=== PATIENT | male | born 1990 | race American Indian/Alaskan Native ===

== ENCOUNTER 2017-11-11 01:10 | Inpatient (IN) | payer SELFPAY ==
[~2017-11-11 01:10] MED LIST: ATIVAN IV ONE
--- NOTE | 2017-11-11 02:01 | Emergency Department Report ---
ED Seizure HPI - General Chief Complaint: Seizure Stated Complaint: SEIZURE Time Seen by Provider: 11/11/17 01:10 Source: EMS Mode of arrival: Stretcher Limitations: Altered Mental Status - History of Present Illness Initial Comments: Patient is a 27-year-old male that presents to the emergency room via EMS with seizure like activity. Seizure activity witnessed by family and EMS. Patient given Ativan by EMS. During the postictal stage, patient became very combative and agitated and confused. Patient has a past medical history of seizures, HIV, diabetes. Patient is noncompliant with medications. Histories given by EMS and mother MD Complaint: seizure, loss of consciousness -: Sudden Description of Episode: loss of consciousness, tonic-clonic movement, post- event confusion Witnessed:: Yes Trauma: No Seizure History: known seizure disorder, history of non-compliance Place: home Possible Precipitating Event: none Associated Symptoms: confusion Treatments Prior to Arrival: benzodiazepines - Related Data Home Medications Medication Instructions Recorded Confirmed Last Taken Antiretroviral Regimen Meds Unknown 10/09/15 10/09/15 Unknown Ritonavir [Norvir] 800 mg PO DAILY 10/09/15 10/09/15 10/07/15 Previous Rx's Medication Instructions Recorded Last Taken Type Cyclobenzaprine [Flexeril] 10 mg PO TID PRN #15 tablet 10/09/15 Unknown Rx traMADol [Ultram 50 MG tab] 50 mg PO Q4HR PRN #20 tablet 10/09/15 Unknown Rx Allergies Allergy/AdvReac Type Severity Reaction Status Date / Time peanut Allergy Unknown Verified 11/11/17 01:31 sea food Allergy Rash Uncoded 11/11/17 01:31 ED Review of Systems ROS: Stated complaint: SEIZURE Other details as noted in HPI Comment: Unobtainable due to pts medical conditions ED Past Medical Hx - Past Medical History Previous Medical History?: Yes Hx Diabetes: Yes Hx Seizures: Yes Hx HIV: Yes - Surgical History Past Surgical History?: No - Family History Family history: hypertension - Social History Smoking Status: Current Every Day Smoker Substance Use Type: None - Medications Home Medications: Home Medications Medication Instructions Recorded Confirmed Last Taken Type Antiretroviral Regimen Meds Unknown 10/09/15 10/09/15 Unknown History Cyclobenzaprine [Flexeril] 10 mg PO TID PRN #15 tablet 10/09/15 Unknown Rx Ritonavir [Norvir] 800 mg PO DAILY 10/09/15 10/09/15 10/07/15 History traMADol [Ultram 50 MG tab] 50 mg PO Q4HR PRN #20 tablet 10/09/15 Unknown Rx ED Physical Exam - General Limitations: Altered Mental Status General appearance: lethargic - Head Head exam: Present: atraumatic, normocephalic - Eye Eye exam: Present: normal appearance, PERRL Pupils: Present: normal accommodation - ENT ENT exam: Present: normal exam, mucous membranes moist - Neck Neck exam: Present: normal inspection - Respiratory Respiratory exam: Present: normal lung sounds bilaterally - Cardiovascular Cardiovascular Exam: Present: regular rate, normal rhythm. Absent: systolic murmur, diastolic murmur, rubs, gallop - GI/Abdominal GI/Abdominal exam: Present: soft, normal bowel sounds - Rectal Rectal exam: Present: deferred - Extremities Exam Extremities exam: Present: normal inspection - Back Exam Back exam: Present: normal inspection - Neurological Exam Neurological exam: Present: altered - Psychiatric Psychiatric exam: Present: other (patient very agitated and combative) - Skin Skin exam: Present: warm, dry, intact, normal color. Absent: rash ED Course Vital Signs 11/11/17 11/11/17 01:10 02:10 Temperature 98.8 F Pulse Rate 92 H Respiratory 38 H 30 H Rate Blood Pressure 120/79 O2 Sat by Pulse 99 100 Oximetry - Reevaluation(s) Reevaluation #1: 11/11/17 02:10. Patient resting. No seizure activity Reevaluation #2: 11/11/17 04:55 patient in nature shift will start fluids and insulin drip ED Medical Decision Making - Lab Data Result diagrams: 11/11/17 03:18 11/11/17 03:18 - EKG Data -: EKG Interpreted by Ok EKG shows normal: sinus rhythm Rate: normal - EKG Data Interpretation: no acute changes - Radiology Data Radiology results: report reviewed - Medical Decision Making Patient is a 23-year-old noncompliant patient was sent to the emergency room with uncontrolled seizure activity and agitation. Patient found to be in HONK, will treat appropriately. Will consult hospitalist for admission - Differential Diagnosis dka, noncompliance, hhs. dehydration. Critical Care Time: Yes Critical care attestation.: If time is entered above; I have spent that time in minutes in the direct care of this critically ill patient, excluding procedure time. Critical Care Time: 45 minutes spent with patient for critical care time ED Disposition Clinical Impression: Seizure, Altered mental status, Hyperglycemia, Combative behavior, Acute renal insufficiency, Hyperglycemic hyperosmolar nonketotic coma Disposition: DC09 OP ADMIT IP TO THIS HOSP Is pt being admited?: Yes Does the pt Need Aspirin: No Condition: Critical Time of Disposition: 05:07
[2017-11-11 02:19] LABS: Bilirubin,Urine NEG (Negative); Blood,Urine NEG (Negative); Color,Urine Red (Yellow); Nitrite,Urine NEG (Negative); Urobilinogen,Urine < 2.0 mg/dL (<2.0); WBC,Urine < 1.0 /HPF (0.0-6.0)
[2017-11-11 02:20] LABS: RBC,Urine < 1.0 /HPF (0.0-6.0)
--- NOTE | 2017-11-11 03:07 | Cat Scan Report ---
FINAL REPORT PROCEDURE: CT HEAD/BRAIN WO CON TECHNIQUE: Computerized tomography of the head was performed without contrast material. 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 Paranasal sinuses: Normal. Ventricles and subarachnoid spaces: Normal. Cerebrum: No evidence of hemorrhage, acute infarction or mass. There are calcifications in the right frontal lobe which could be related to previous shunt placement. Cerebellum and brainstem: No evidence of hemorrhage, acute infarction or mass. Vasculature: Normal. Comments: None. IMPRESSION: There is no hemorrhage, edema, mass, mass effect or midline shift. 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 There are calcifications in the right frontal lobe which could be related to previous shunt placement.
[2017-11-11 03:10] LABS: Amphetamine Screen,Urine PRESUMPTIVE NEGATIVE; Benzodiazepines Screen,Urine PRESUMPTIVE NEGATIVE; Cannabinoid Screen,Urine PRESUMPTIVE NEGATIVE; Cocaine Screen,Urine PRESUMPTIVE NEGATIVE; Methadone Screen,Urine PRESUMPTIVE NEGATIVE; Opiate Screen,Urine PRESUMPTIVE NEGATIVE
[2017-11-11 03:39] LABS: Hematocrit 34.3 % (35.5-45.6); Hemoglobin 11.2 gm/dl (11.8-15.2); Mean Corpuscular HGB Conc 33 % (32-34); Mean Corpuscular Volume 79 fl (84-94); Platelet Count 299 K/mm3 (140-440); Red Blood Count 4.36 M/mm3 (3.65-5.03); Red Cell Distribution Width 14.7 % (13.2-15.2)
[2017-11-11 03:43] LABS: Mean Corpuscular Hemoglobin 26 pg (28-32)
[2017-11-11 04:43] LABS: Band Neutrophils # (Manual) 1.1 K/mm3; Basophils % (Manual) 0 % (0.0-1.8); Total Cells Counted 100
[2017-11-11 04:45] LABS: Anisocytosis 1+; Platelet Estimate Consistent w Auto
[2017-11-11] MEDS ORDERED: NACL 0.9% 1000 ML 1,000 ML IV ONE ×3 (04:57→08:48)
[2017-11-11] MEDS ORDERED: D50W (25GM) Syringe IV PRN ×3 (04:57→13:19)
[2017-11-11] MEDS ORDERED: NovoLIN R 100 UNITS in NACL 0.9% 99 ML IV SCH ×2 (05:00→09:00)
[2017-11-11] MEDS ORDERED: TYLENOL PO PRN (05:46)
[2017-11-11] MEDS ORDERED: MILK OF MAGNESIA PO PRN (05:46)
[2017-11-11] MEDS ORDERED: DULCOLAX PR PRN (05:46)
[2017-11-11] MEDS ORDERED: ZOFRAN IV PRN (05:46)
--- NOTE | 2017-11-11 05:46 | History and Physical Report ---
History of Present Illness Date of examination: 11/11/17 History of present illness: 27-year-old man history of HIV, diabetes, seizure was brought to the emergency room because he had a seizure today. Patient is noncompliant with medication. He stated that he was recently admitted at [facility] 2 months ago for a brain infection, he cannot give further details Review Of Systems: Constitutional: no weight loss Ears, eyes, nose, mouth and throat: no nasal congestion, no nasal discharge, no sinus pressure, blurry vision, diplopia Neck: No neck pain or rigidity. Cardiovascular: No chest pain, palpitations Respiratory: No shortness of breath, cough Gastrointestinal: No abdominal pain, hematochezia Genitourinary : no dysuria, frequency , hematuria Musculoskeletal: no muscle ache Integumentary: no rash, no pruritis Neurological: no parathesias, focal weakness Endocrine: no cold or heat intolerance, no polyuria or polydipsia Hematologic/Lymphatic: no easy bruising, no easy bleeding, no gland swelling Allergic/Immunologic: no urticaria, no angioedema. PAST MEDICAL HISTORY:HIV, diabetes, seizure PAST SURGICAL HISTORY:none FAMILY HISTORY:diabetes SOCIAL HISTORY: Denies all alcohol, tobacco, drugs Medications and Allergies Allergies Allergy/AdvReac Type Severity Reaction Status Date / Time peanut Allergy Unknown Verified 11/11/17 01:31 sea food Allergy Rash Uncoded 11/11/17 01:31 Home Medications Medication Instructions Recorded Confirmed Last Taken Type Abacavir Sulfate/Lamivudine 1 each PO QDAY 11/11/17 11/11/17 Unknown History [Abacavir-Lamivudine 600-300 mg] Calcium Carbonate/Vitamin D3 1 each PO QDAY 11/11/17 11/11/17 Unknown History [Calcium 500-Vit D3 200 Tablet] Ciprofloxacin HCl [Ciprofloxacin 500 mg PO BID 11/11/17 11/11/17 Unknown History TAB] Darunavir Ethanolate [Prezista] 800 mg PO QDAY 11/11/17 11/11/17 Unknown History Docusate Sodium [Colace] 100 mg PO QDAY 11/11/17 11/11/17 Unknown History Insulin Detemir [Levemir] 10 units SUB-Q QHS 11/11/17 11/11/17 Unknown History Omeprazole 20 mg PO QDAY 11/11/17 11/11/17 Unknown History Ranitidine HCl [Acid Seo Engineer] 150 mg PO QDAY 11/11/17 11/11/17 Unknown History Ritonavir [Norvir] 100 mg PO QDAY 11/11/17 11/11/17 Unknown History Sennosides 8.6 mg PO QHS PRN 11/11/17 11/11/17 Unknown History metroNIDAZOLE [Metronidazole] 500 mg PO QDAY 11/11/17 11/11/17 Unknown History Active Meds: Active Medications Dextrose (D50w (25gm) Syringe) 0 ml IV ONCE PRN PRN Reason: Hypoglycemia Sodium Chloride (Nacl 0.9% 1000 Ml) 1,000 mls @ 999 mls/hr IV BOLUS ONE Stop: 11/11/17 05:57 Insulin Human Regular 100 (units/ Sodium Chloride) 100 mls @ 1 mls/hr IV TITR JOSÉ ANTONIO; 1 UNITS/HR PRN Reason: Protocol Sodium Chloride (Nacl 0.9% 1000 Ml) 1,000 mls @ 999 mls/hr IV BOLUS ONE Stop: 11/11/17 06:07 Exam - Physical Exam Narrative exam: Gen. appearance: Patient lying in bed in no acute distress HEENT: Normocephalic/atraumatic, pupils equal round reactive to light, extra occular movement intact, no scleral icterus, no JVD or thyromegaly or nodule, neck is supple, mucous membrane moist, no erythema or exudate Heart: S1-S2, regular rate and rhythm Lungs: Clear to auscultation bilateral breathing comfortable Abdomen: Positive bowel sounds, nontender, nondistended, no organomegaly Extremities: No edema, cyanosis, clubbing Neuro:: Oriented 3 , cranial nerves II-12 intact, speech, motor intact Skin: No rash, nodules, warm dry - Constitutional Vitals: Temp Pulse Resp BP Pulse Ox 98.8 F 92 H 30 H 120/79 100 11/11/17 01:10 11/11/17 01:10 11/11/17 02:10 11/11/17 01:10 11/11/17 02:10 Results - Labs CBC & Chem 7: 11/11/17 03:18 11/11/17 05:25 Labs: Abnormal lab results 11/11/17 11/11/17 11/11/17 Range/Units 02:34 03:18 03:18 Hgb 11.2 L (11.8-15.2) gm/dl Hct 34.3 L (35.5-45.6) % MCV 79 L (84-94) fl MCH 26 L (28-32) pg Seg Neuts % (Manual) 72.0 H (40.0-70.0) % Lymphocytes % (Manual) 4.0 L (13.4-35.0) % Lymphocytes # (Manual) 0.2 L (1.2-5.4) K/mm3 Sodium 120 L (137-145) mmol/L Potassium 5.5 H (3.6-5.0) mmol/L Chloride 80.2 L (98-107) mmol/L BUN 35 H (9-20) mg/dL Creatinine 2.1 H (0.8-1.5) mg/dL Glucose 1038 H* (75-100) mg/dL POC Glucose > 500 H (70-105) Salicylates (2.8-20.0) mg/dL 11/11/17 Range/Units 03:18 Hgb (11.8-15.2) gm/dl Hct (35.5-45.6) % MCV (84-94) fl MCH (28-32) pg Seg Neuts % (Manual) (40.0-70.0) % Lymphocytes % (Manual) (13.4-35.0) % Lymphocytes # (Manual) (1.2-5.4) K/mm3 Sodium (137-145) mmol/L Potassium (3.6-5.0) mmol/L Chloride (98-107) mmol/L BUN (9-20) mg/dL Creatinine (0.8-1.5) mg/dL Glucose (75-100) mg/dL POC Glucose (70-105) Salicylates < 0.3 L (2.8-20.0) mg/dL - Imaging and Cardiology CT Scan - head: report reviewed Assessment and Plan Assessment HONK Seizure acute on chronic, probably related to diabetes versus noncompliant with his medication for brain infection HIV Noncompliance Plan Admit to medicine Start insulin drip, IV fluids, monitor electrolytes Consult critical care DVT prophylaxis
[2017-11-11 05:53] LABS: Calcium 9.2 mg/dL (8.4-10.2); Magnesium 2.3 mg/dL (1.7-2.3)
[2017-11-11] MEDS ORDERED: NACL 0.9% 1000 ML 1,000 ML IV SCH (06:00)
[2017-11-11] MEDS ORDERED: D5/0.45NS 1,000 ML IV SCH (06:00)
[2017-11-11 07:41] LABS: Calcium 8.6 mg/dL (8.4-10.2)
--- NOTE | 2017-11-11 09:02 | Progress Note ---
Assessment and Plan Assessment and plan: Continue present care with [facility] protocol. Awaiting CC and dietary consult History Interval history: 27 yo [facility] with initial glucose 1038 but now 234. Feeling better. Hospitalist Physical - Constitutional Vitals: Temp Pulse Resp BP Pulse Ox 98.8 F 92 H 30 H 120/79 100 11/11/17 01:10 11/11/17 01:10 11/11/17 02:10 11/11/17 01:10 11/11/17 02:10 General appearance: Present: no acute distress - EENT Eyes: Present: PERRL, EOM intact - Neck Neck: Present: supple, normal ROM - Respiratory Respiratory effort: normal - Cardiovascular Heart rate: 121 - Extremities Extremities: no ischemia - Abdominal General gastrointestinal: soft, non-tender Results - Labs CBC & Chem 7: 11/11/17 03:18 11/11/17 07:08 Labs: Laboratory Last Values WBC 5.9 K/mm3 (4.5-11.0) 11/11/17 03:18 RBC 4.36 M/mm3 (3.65-5.03) 11/11/17 03:18 Hgb 11.2 gm/dl (11.8-15.2) L 11/11/17 03:18 Hct 34.3 % (35.5-45.6) L 11/11/17 03:18 MCV 79 fl (84-94) L 11/11/17 03:18 MCH 26 pg (28-32) L 11/11/17 03:18 MCHC 33 % (32-34) 11/11/17 03:18 RDW 14.7 % (13.2-15.2) 11/11/17 03:18 Plt Count 299 K/mm3 (140-440) 11/11/17 03:18 Add Manual Diff Complete 11/11/17 03:18 Total Counted 100 11/11/17 03:18 Seg Neuts % (Manual) 72.0 % (40.0-70.0) H 11/11/17 03:18 Band Neutrophils % 19.0 % 11/11/17 03:18 Lymphocytes % (Manual) 4.0 % (13.4-35.0) L 11/11/17 03:18 Reactive Lymphs % (Man) 0 % 11/11/17 03:18 Monocytes % (Manual) 2.0 % (0.0-7.3) 11/11/17 03:18 Eosinophils % (Manual) 3.0 % (0.0-4.3) 11/11/17 03:18 Basophils % (Manual) 0 % (0.0-1.8) 11/11/17 03:18 Metamyelocytes % 0 % 11/11/17 03:18 Myelocytes % 0 % 11/11/17 03:18 Promyelocytes % 0 % 11/11/17 03:18 Blast Cells % 0 % 11/11/17 03:18 Nucleated RBC % Not Reportable 11/11/17 03:18 Seg Neutrophils # Man 4.2 K/mm3 (1.8-7.7) 11/11/17 03:18 Band Neutrophils # 1.1 K/mm3 11/11/17 03:18 Lymphocytes # (Manual) 0.2 K/mm3 (1.2-5.4) L 11/11/17 03:18 Abs React Lymphs (Man) 0.0 K/mm3 11/11/17 03:18 Monocytes # (Manual) 0.1 K/mm3 (0.0-0.8) 11/11/17 03:18 Eosinophils # (Manual) 0.2 K/mm3 (0.0-0.4) 11/11/17 03:18 Basophils # (Manual) 0.0 K/mm3 (0.0-0.1) 11/11/17 03:18 Metamyelocytes # 0.0 K/mm3 11/11/17 03:18 Myelocytes # 0.0 K/mm3 11/11/17 03:18 Promyelocytes # 0.0 K/mm3 11/11/17 03:18 Blast Cells # 0.0 K/mm3 11/11/17 03:18 WBC Morphology Not Reportable 11/11/17 03:18 Hypersegmented Neuts Not Reportable 11/11/17 03:18 Hyposegmented Neuts Not Reportable 11/11/17 03:18 Hypogranular Neuts Not Reportable 11/11/17 03:18 Smudge Cells Not Reportable 11/11/17 03:18 Toxic Granulation Not Reportable 11/11/17 03:18 Toxic Vacuolation Not Reportable 11/11/17 03:18 Dohle Bodies Not Reportable 11/11/17 03:18 Pelger-Huet Anomaly Not Reportable 11/11/17 03:18 Matteo Rods Not Reportable 11/11/17 03:18 Platelet Estimate Consistent w auto 11/11/17 03:18 Clumped Platelets Not Reportable 11/11/17 03:18 Plt Clumps, EDTA Not Reportable 11/11/17 03:18 Large Platelets Not Reportable 11/11/17 03:18 Giant Platelets Not Reportable 11/11/17 03:18 Platelet Satelliting Not Reportable 11/11/17 03:18 Plt Morphology Comment Not Reportable 11/11/17 03:18 RBC Morphology Not Reportable 11/11/17 03:18 Dimorphic RBCs Not Reportable 11/11/17 03:18 Polychromasia Not Reportable 11/11/17 03:18 Hypochromasia Not Reportable 11/11/17 03:18 Poikilocytosis Not Reportable 11/11/17 03:18 Anisocytosis 1+ 11/11/17 03:18 Microcytosis Not Reportable 11/11/17 03:18 Macrocytosis Not Reportable 11/11/17 03:18 Spherocytes Not Reportable 11/11/17 03:18 Pappenheimer Bodies Not Reportable 11/11/17 03:18 Sickle Cells Not Reportable 11/11/17 03:18 Target Cells Not Reportable 11/11/17 03:18 Tear Drop Cells Not Reportable 11/11/17 03:18 Ovalocytes Not Reportable 11/11/17 03:18 Helmet Cells Not Reportable 11/11/17 03:18 Cook-Wolbach Bodies Not Reportable 11/11/17 03:18 Beaver Rings Not Reportable 11/11/17 03:18 Turney Cells Not Reportable 11/11/17 03:18 Bite Cells Not Reportable 11/11/17 03:18 Crenated Cell Not Reportable 11/11/17 03:18 Elliptocytes Not Reportable 11/11/17 03:18 Acanthocytes (Spur) Not Reportable 11/11/17 03:18 Rouleaux Not Reportable 11/11/17 03:18 Hemoglobin C Crystals Not Reportable 11/11/17 03:18 Schistocytes Not Reportable 11/11/17 03:18 Malaria parasites Not Reportable 11/11/17 03:18 Brody Bodies Not Reportable 11/11/17 03:18 Hem Pathologist Commnt No 11/11/17 03:18 Sodium 136 mmol/L (137-145) L D 11/11/17 07:08 Potassium 3.9 mmol/L (3.6-5.0) D 11/11/17 07:08 Chloride 97.5 mmol/L (98-107) L 11/11/17 07:08 Carbon Dioxide 23 mmol/L (22-30) 11/11/17 07:08 Anion Gap 19 mmol/L 11/11/17 07:08 BUN 31 mg/dL (9-20) H 11/11/17 07:08 Creatinine 1.8 mg/dL (0.8-1.5) H 11/11/17 07:08 Estimated GFR 54 ml/min 11/11/17 07:08 BUN/Creatinine Ratio 17 % 11/11/17 07:08 Glucose 495 mg/dL (75-100) H 11/11/17 07:08 POC Glucose 234 (70-105) H 11/11/17 08:25 Lactic Acid 1.70 mmol/L (0.7-2.0) 11/11/17 03:18 Calcium 8.6 mg/dL (8.4-10.2) 11/11/17 07:08 Phosphorus 2.90 mg/dL (2.5-4.5) 11/11/17 05:25 Magnesium 2.30 mg/dL (1.7-2.3) 11/11/17 05:25 Total Bilirubin 0.20 mg/dL (0.1-1.2) 11/11/17 03:18 AST 15 units/L (5-40) 11/11/17 03:18 ALT 9 units/L (7-56) 11/11/17 03:18 Alkaline Phosphatase 99 units/L (35-129) 11/11/17 03:18 Total Protein 7.3 g/dL (6.3-8.2) 11/11/17 03:18 Albumin 4.0 g/dL (3.9-5) 11/11/17 03:18 Albumin/Globulin Ratio 1.2 % 11/11/17 03:18 Urine Color Red (Yellow) 11/11/17 02:10 Urine Turbidity Clear (Clear) 11/11/17 02:10 Urine pH 6.0 (5.0-7.0) 11/11/17 02:10 Ur Specific [place] 1.017 (1.003-1.030) 11/11/17 02:10 Urine Protein 100 mg/dl mg/dL (Negative) 11/11/17 02:10 Urine Glucose (UA) >=500 mg/dL (Negative) 11/11/17 02:10 Urine Ketones Neg mg/dL (Negative) 11/11/17 02:10 Urine Blood Neg (Negative) 11/11/17 02:10 Urine Nitrite Neg (Negative) 11/11/17 02:10 Urine Bilirubin Neg (Negative) 11/11/17 02:10 Urine Urobilinogen < 2.0 mg/dL (<2.0) 11/11/17 02:10 Ur Leukocyte Esterase Neg (Negative) 11/11/17 02:10 Urine WBC (Auto) < 1.0 /HPF (0.0-6.0) 11/11/17 02:10 Urine RBC (Auto) < 1.0 /HPF (0.0-6.0) 11/11/17 02:10 Salicylates < 0.3 mg/dL (2.8-20.0) L 11/11/17 03:18 Urine Opiates Screen Presumptive negative 11/11/17 02:10 Urine Methadone Screen Presumptive negative 11/11/17 02:10 Acetaminophen 15.0 ug/mL (10.0-30.0) 11/11/17 03:18 Ur Barbiturates Screen Presumptive negative 11/11/17 02:10 Ur Phencyclidine Scrn Presumptive negative 11/11/17 02:10 Ur Amphetamines Screen Presumptive negative 11/11/17 02:10 U Benzodiazepines Scrn Presumptive negative 11/11/17 02:10 Urine Cocaine Screen Presumptive negative 11/11/17 02:10 U Marijuana (THC) Screen Presumptive negative 11/11/17 02:10 Drugs of Abuse Note Disclamer 11/11/17 02:10 Plasma/Serum Alcohol < 0.01 % (0-0.07) 11/11/17 03:18
[2017-11-11] MEDS: D5W/0.45% NACL/KCL 20 MEQ 20 MEQ/1,000 ML BAG IV SCH ×2 (09:31→23:51)
[2017-11-11] MEDS ORDERED: LAMIVUDINE PO SCH (10:00)
[2017-11-11] MEDS ORDERED: ABACAVIR SULFATE PO SCH (10:00)
[2017-11-11 10:45] LABS: BUN/Creatinine Ratio 19; Blood Urea Nitrogen 30 mg/dL (9-20); Calcium 8.3 mg/dL (8.4-10.2); Hemolysis Index 19
[2017-11-11] MEDS: PREZISTA PO SCH (11:00)
[2017-11-11] MEDS: ZIAGEN PO SCH (11:00)
[2017-11-11] MEDS: NORVIR PO SCH (11:00)
[2017-11-11] MEDS: EPIVIR PO SCH (11:00)
[2017-11-11] MEDS: FLAGYL PO SCH (11:00)
[2017-11-11] MEDS: COLACE PO SCH (11:00)
[2017-11-11] MEDS: LEVAQUIN PO SCH (11:00)
[2017-11-11 12:31] LABS: BUN/Creatinine Ratio 17; Blood Urea Nitrogen 27 mg/dL (9-20); Calcium 8.1 mg/dL (8.4-10.2); Hemolysis Index 12
[2017-11-11] MEDS: OYSCO D 500 MG-200 UNIT PO SCH (13:30)
[2017-11-11] MEDS: PROTONIX PO SCH (13:30)
[2017-11-11 14:03] LABS: Calcium 8.2 mg/dL (8.4-10.2)
--- NOTE | 2017-11-11 16:21 | Consultation ---
History of Present Illness Consult date: 11/11/17 Requesting physician: DNAIA MATT Reason for consult: other (seizures, hyperglycemia requiring insulin infusion) History of present illness: 27-year-old man history of HIV, diabetes, seizure was brought to the emergency room because he had a seizure today. Patient is noncompliant with medication. He stated that he was recently admitted at [facility] 2 months ago for a brain infection, he cannot give further details Review Of Systems as per medical records and documentation: Constitutional: no weight loss Ears, eyes, nose, mouth and throat: no nasal congestion, no nasal discharge, no sinus pressure, blurry vision, diplopia Neck: No neck pain or rigidity. Cardiovascular: No chest pain, palpitations Respiratory: No shortness of breath, cough Gastrointestinal: No abdominal pain, hematochezia Genitourinary : no dysuria, frequency , hematuria Musculoskeletal: no muscle ache Integumentary: no rash, no pruritis Neurological: no parathesias, focal weakness Endocrine: no cold or heat intolerance, no polyuria or polydipsia Hematologic/Lymphatic: no easy bruising, no easy bleeding, no gland swelling Allergic/Immunologic: no urticaria, no angioedema. PAST MEDICAL HISTORY:HIV, diabetes, seizure PAST SURGICAL HISTORY:none FAMILY HISTORY:diabetes SOCIAL HISTORY: Denies all alcohol, tobacco, drugs Gen. appearance: Patient lying in bed in no acute distress, chronically ill looking HEENT: Normocephalic/atraumatic, pupils equal round reactive to light, extra occular movement intact, no scleral icterus, no JVD or thyromegaly or nodule, neck is supple, mucous membrane moist, no erythema or exudate Heart: S1-S2, regular rate and rhythm Lungs: Clear to auscultation bilateral breathing comfortable Abdomen: Positive bowel sounds, non-tender, non-distended, no organomegaly Extremities: No edema, cyanosis, clubbing Neuro: Oriented 3 , grossly intact, no focal motor deficits Skin: No rash, nodules, warm dry Medications and Allergies Allergies Allergy/AdvReac Type Severity Reaction Status Date / Time peanut Allergy Unknown Verified 11/11/17 01:31 sea food Allergy Rash Uncoded 11/11/17 01:31 Home Medications Medication Instructions Recorded Confirmed Last Taken Type Abacavir Sulfate/Lamivudine 1 each PO QDAY 11/11/17 11/11/17 Unknown History [Abacavir-Lamivudine 600-300 mg] Calcium Carbonate/Vitamin D3 1 each PO QDAY 11/11/17 11/11/17 Unknown History [Calcium 500-Vit D3 200 Tablet] Ciprofloxacin HCl [Ciprofloxacin 500 mg PO BID 11/11/17 11/11/17 Unknown History TAB] Darunavir Ethanolate [Prezista] 800 mg PO QDAY 11/11/17 11/11/17 Unknown History Docusate Sodium [Colace] 100 mg PO QDAY 11/11/17 11/11/17 Unknown History Insulin Detemir [Levemir] 10 units SUB-Q QHS 11/11/17 11/11/17 Unknown History Omeprazole 20 mg PO QDAY 11/11/17 11/11/17 Unknown History Ranitidine HCl [Acid Buggy Driver] 150 mg PO QDAY 11/11/17 11/11/17 Unknown History Ritonavir [Norvir] 100 mg PO QDAY 11/11/17 11/11/17 Unknown History Sennosides 8.6 mg PO QHS PRN 11/11/17 11/11/17 Unknown History metroNIDAZOLE [Metronidazole] 500 mg PO QDAY 11/11/17 11/11/17 Unknown History Active Meds: Active Medications Abacavir Sulfate (Ziagen) 600 mg PO QDAY [facility] Last Admin: 11/11/17 11:00 Dose: 600 mg Acetaminophen (Tylenol) 650 mg PO Q4H PRN PRN Reason: Pain MILD(1-3)/Fever >100.5/ABRAMS Bisacodyl (Dulcolax) 10 mg UT QDAY PRN PRN Reason: Constipation unrelieved by MOM Calcium/Vitamin D (Oysco D 500 Mg-200 Unit) 1 each PO QDAY [facility] Last Admin: 11/11/17 13:30 Dose: 1 each Darunavir (Prezista) 800 mg PO QDAY [facility] Last Admin: 11/11/17 11:00 Dose: 800 mg Dextrose (D50w (25gm) Syringe) 0 ml IV ONCE PRN PRN Reason: Hypoglycemia Dextrose (D50w (25gm) Syringe) 0 ml IV PRN PRN PRN Reason: Hypoglycemia Last Admin: 11/11/17 09:41 Dose: 15 ml Dextrose (D50w (25gm) Syringe) 50 ml IV PRN PRN PRN Reason: Hypoglycemia Docusate Sodium (Colace) 100 mg PO QDAY [facility] Last Admin: 11/11/17 11:00 Dose: 100 mg Dextrose/Sodium Chloride (D5/0.45ns) 1,000 mls @ 150 mls/hr IV DIRECT JOSÉ ANTONIO Sodium Chloride (Nacl 0.9% 1000 Ml) 1,000 mls @ 150 mls/hr IV DIRECT JOSÉ ANTONIO Insulin Human Regular 100 (units/ Sodium Chloride) 100 mls @ 1 mls/hr IV TITR JOSÉ ANTONIO; 1 UNITS/HR PRN Reason: Protocol Stop: 11/12/17 06:00 Potassium Chloride/Dextrose/Sod Cl (D5w/0.45% Nacl/Kcl 20 Meq) 20 meq in 1,000 mls @ 125 mls/hr IV DIRECT JOSÉ ANTONIO Last Admin: 11/11/17 09:31 Dose: 125 mls/hr Insulin Human Regular (Novolin R) 0 units SUB-Q ACHS [facility] PRN Reason: Protocol Lamivudine (Epivir) 300 mg PO QDAY [facility] Last Admin: 11/11/17 11:00 Dose: 300 mg Levofloxacin (Levaquin) 500 mg PO Q24HR [facility] Last Admin: 11/11/17 11:00 Dose: 500 mg Magnesium Hydroxide (Milk Of Magnesia) 30 ml PO Q4H PRN PRN Reason: Constipation Metronidazole (Flagyl) 500 mg PO QDAY [facility] Last Admin: 11/11/17 11:00 Dose: 500 mg Ondansetron HCl (Zofran) 4 mg IV Q8H PRN PRN Reason: N/V unrelieved by Reglan Pantoprazole Sodium (Protonix) 20 mg PO QDAY [facility] Last Admin: 11/11/17 13:30 Dose: 20 mg Ritonavir (Norvir) 100 mg PO QDAY [facility] Last Admin: 11/11/17 11:00 Dose: 100 mg Physical Examination Vital signs: Vital Signs Temp Pulse Resp BP Pulse Ox 98.8 F 92 H 38 H 120/79 99 11/11/17 01:10 11/11/17 01:10 11/11/17 01:10 11/11/17 01:10 11/11/17 01:10 General appearance: no acute distress Effort: normal (movin) normal mental status (moving all extremities) Results - Laboratory Findings CBC and BMP: 11/11/17 03:18 11/11/17 13:23 Abnormal lab findings: Abnormal Labs 11/11/17 11/11/17 11/11/17 02:34 03:18 03:18 Hgb 11.2 L Hct 34.3 L MCV 79 L MCH 26 L Seg Neuts % (Manual) 72.0 H Lymphocytes % (Manual) 4.0 L Lymphocytes # (Manual) 0.2 L Sodium 120 L Potassium 5.5 H Chloride 80.2 L BUN 35 H Creatinine 2.1 H Glucose 1038 H* POC Glucose > 500 H Calcium Salicylates 11/11/17 11/11/17 11/11/17 03:18 05:25 07:06 Hgb Hct MCV MCH Seg Neuts % (Manual) Lymphocytes % (Manual) Lymphocytes # (Manual) Sodium 121 L Potassium 5.8 H Chloride 83.1 L BUN 36 H Creatinine 2.0 H Glucose 969 H* POC Glucose > 500 H Calcium Salicylates < 0.3 L 11/11/17 11/11/17 11/11/17 07:08 08:22 08:25 Hgb Hct MCV MCH Seg Neuts % (Manual) Lymphocytes % (Manual) Lymphocytes # (Manual) Sodium 136 L D Potassium Chloride 97.5 L BUN 31 H Creatinine 1.8 H Glucose 495 H POC Glucose 228 H 234 H Calcium Salicylates 11/11/17 11/11/17 11/11/17 09:37 10:06 11:55 Hgb Hct MCV MCH Seg Neuts % (Manual) Lymphocytes % (Manual) Lymphocytes # (Manual) Sodium Potassium Chloride BUN 30 H 27 H Creatinine 1.6 H 1.6 H Glucose 107 H POC Glucose 67 L Calcium 8.3 L 8.1 L Salicylates 11/11/17 11/11/17 13:00 13:23 Hgb Hct MCV MCH Seg Neuts % (Manual) Lymphocytes % (Manual) Lymphocytes # (Manual) Sodium Potassium Chloride BUN 27 H Creatinine 1.7 H Glucose 106 H POC Glucose 158 H Calcium 8.2 L Salicylates Assessment and Plan Hyperosmolar, non-ketotic hyperglycemia Seizure acute on chronic, HIV Medical non-compliance Severe protein calorie malnutrition Acute rehal failure, probably secondary to dehydration -Insulin infusion -IVF, monitor electrolytes and renal function -Replace electrolytes as needed -VTE prophylaxis -OK to admit to telemetry -Need for medical compliance discussions required prior to discharge -Nutritional support -OK to down grade to telemetry floor, not meeting ICU level of care at this time
[2017-11-11 17:39] LABS: BUN/Creatinine Ratio 16; Blood Urea Nitrogen 25 mg/dL (9-20); Calcium 8.4 mg/dL (8.4-10.2); Hemolysis Index 5
[2017-11-11 20:51] LABS: BUN/Creatinine Ratio 14; Blood Urea Nitrogen 23 mg/dL (9-20); Calcium 8.2 mg/dL (8.4-10.2); Hemolysis Index 4
[2017-11-12 01:29] LABS: Calcium 8.6 mg/dL (8.4-10.2)
[2017-11-12 08:49] VITALS: BP 118/71
[2017-11-12 09:39] LABS: Calcium 8.5 mg/dL (8.4-10.2)
[2017-11-12] MEDS: PREZISTA PO SCH (10:36)
[2017-11-12] MEDS: ZIAGEN PO SCH (10:36)
[2017-11-12] MEDS: EPIVIR PO SCH (10:37)
[2017-11-12] MEDS: OYSCO D 500 MG-200 UNIT PO SCH (10:37)
[2017-11-12] MEDS: LEVAQUIN PO SCH (10:37)
[2017-11-12] MEDS: PROTONIX PO SCH (10:37)
[2017-11-12] MEDS: NORVIR PO SCH (10:37)
[2017-11-12] MEDS: COLACE PO SCH ×2 (10:37→10:39)
[2017-11-12] MEDS: FLAGYL PO SCH (10:38)
[2017-11-12 13:46] LABS: Calcium 8.5 mg/dL (8.4-10.2)
--- NOTE | 2017-11-12 14:15 | Progress Note ---
Assessment and Plan Hyperosmolar, non-ketotic hyperglycemia Seizure acute on chronic, HIV Medical non-compliance Severe protein calorie malnutrition Acute rehal failure, probably secondary to dehydration -Insulin infusion -IVF, monitor electrolytes and renal function -Replace electrolytes as needed -VTE prophylaxis -OK to admit to telemetry -Need for medical compliance discussions required prior to discharge -Nutritional support -OK to down grade to telemetry floor, not meeting ICU level of care at this time Subjective Date of service: 11/12/17 Interval history: Patient is seen today for: Seen and examined at bedside; 24hour events reviewed; nursing and respiratory care staff consulted; no adverse overnight events reported to me; Objective Vital Signs - 12hr 11/12/17 08:00 Temperature 98.1 F Pulse Rate 66 Respiratory 14 Rate Blood Pressure 118/71 O2 Sat by Pulse 100 Oximetry Constitutional: no acute distress Effort: normal (movin) Neurologic: normal mental status (moving all extremities) CBC and BMP: 11/11/17 03:18 11/12/17 13:02 Abnormal lab findings: Abnormal Labs 11/11/17 11/11/17 11/11/17 02:34 03:18 03:18 Hgb 11.2 L Hct 34.3 L MCV 79 L MCH 26 L Seg Neuts % (Manual) 72.0 H Lymphocytes % (Manual) 4.0 L Lymphocytes # (Manual) 0.2 L Sodium 120 L Potassium 5.5 H Chloride 80.2 L Carbon Dioxide BUN 35 H Creatinine 2.1 H Glucose 1038 H* POC Glucose > 500 H Calcium Salicylates 11/11/17 11/11/17 11/11/17 03:18 05:25 07:06 Hgb Hct MCV MCH Seg Neuts % (Manual) Lymphocytes % (Manual) Lymphocytes # (Manual) Sodium 121 L Potassium 5.8 H Chloride 83.1 L Carbon Dioxide BUN 36 H Creatinine 2.0 H Glucose 969 H* POC Glucose > 500 H Calcium Salicylates < 0.3 L 11/11/17 11/11/17 11/11/17 07:08 08:22 08:25 Hgb Hct MCV MCH Seg Neuts % (Manual) Lymphocytes % (Manual) Lymphocytes # (Manual) Sodium 136 L D Potassium Chloride 97.5 L Carbon Dioxide BUN 31 H Creatinine 1.8 H Glucose 495 H POC Glucose 228 H 234 H Calcium Salicylates 02/08/1811/11/17 11/11/17 09:37 10:06 11:55 Hgb Hct MCV MCH Seg Neuts % (Manual) Lymphocytes % (Manual) Lymphocytes # (Manual) Sodium Potassium Chloride Carbon Dioxide BUN 30 H 27 H Creatinine 1.6 H 1.6 H Glucose 107 H POC Glucose 67 L Calcium 8.3 L 8.1 L Salicylates 11/11/17 11/11/17 11/11/17 13:00 13:23 15:41 Hgb Hct MCV MCH Seg Neuts % (Manual) Lymphocytes % (Manual) Lymphocytes # (Manual) Sodium Potassium Chloride Carbon Dioxide BUN 27 H Creatinine 1.7 H Glucose 106 H POC Glucose 158 H 217 H Calcium 8.2 L Salicylates 11/11/17 11/11/17 11/11/17 17:05 17:34 20:22 Hgb Hct MCV MCH Seg Neuts % (Manual) Lymphocytes % (Manual) Lymphocytes # (Manual) Sodium 136 L Potassium Chloride Carbon Dioxide 21 L BUN 25 H 23 H Creatinine 1.6 H 1.6 H Glucose 202 H 321 H POC Glucose 220 H Calcium 8.2 L Salicylates 11/11/17 11/12/17 11/12/17 22:18 01:01 09:09 Hgb Hct MCV MCH Seg Neuts % (Manual) Lymphocytes % (Manual) Lymphocytes # (Manual) Sodium Potassium Chloride Carbon Dioxide 21 L BUN 21 H Creatinine 1.7 H 1.7 H Glucose 220 H 221 H POC Glucose 293 H Calcium Salicylates 11/12/17 11/12/17 11:30 13:02 Hgb Hct MCV MCH Seg Neuts % (Manual) Lymphocytes % (Manual) Lymphocytes # (Manual) Sodium Potassium Chloride Carbon Dioxide BUN Creatinine 1.8 H Glucose 228 H POC Glucose 298 H Calcium Salicylates
--- NOTE | 2017-11-12 14:20 | Discharge Summary ---
Providers - Providers Date of Admission: 11/11/17 05:46 Attending physician: RORO MAHONEY MD 11/11/17 05:46 Consult to Physician [CONS] Routine Consulting Provider: DINORA PACHECO Reason For Exam: cc Place consult to:: CC CONSUMER LOAN MANAGER Notified:: Y If yes, spoke with:: Reddy MONTGOMERY Time called:: 07:50 11/11/17 08:51 Consult to Dietitian/Nutrition [CONS] Routine Physician Instructions: Reason For Exam: HONK Reason for Consult: Nutrition Recommendations Reason for Consult: Diet education Primary care physician: FRANCISCO RODRIGUEZ Hospitalization Condition: Stable Exam - Constitutional Vitals: Temp Pulse Resp BP Pulse Ox 98.1 F 66 14 118/71 100 11/12/17 08:00 11/12/17 08:00 11/12/17 08:00 11/12/17 08:00 11/12/17 08:00 Plan Follow up with: FRANCISCO RODRIGUEZ MD [Primary Care Provider] - 7 Days SOPHIA CARY MD [Staff Physician] - 7 Days Prescriptions: Insulin Regular, Human Inj [NovoLIN R Inj] 0 unit SQ AC #1 vial
--- NOTE | 2017-11-12 16:28 | Event Note ---
Date: 11/12/17 Doing better Off IV insulin therapy No recurrent seizures - d/c planning per attending
--- NOTE | 2017-11-12 18:12 | Event Note ---
Date: 11/12/17 Patient seen and examined this morning and I can distress no further seizure activity. Clinically stable discussed extensively about diabetic management and also about renal function patient verbalized understanding. Promises compliance with medications. Patient is stable for discharge. See discharge summary for detailed clinical summary.
== END 2017-11-12 16:05 | disposition home or self-care (01) | DRG 637 ==
LOC: ED 01:10 → CC1 05:46 → 3A 18:15
PROVIDERS: ADMIT Internal Medicine; ATTEND Internal Medicine
DX: E11.00 Type 2 diabetes mellitus with hyperosmolarity without nonketotic hyperglycemic-hyperosmolar coma (NKHHC) (principal); E43 Unspecified severe protein-calorie malnutrition; E72.51 Non-ketotic hyperglycinemia; N17.9 Acute kidney failure, unspecified; Z68.1 Body mass index [BMI] 19.9 or less, adult; E11.65 Type 2 diabetes mellitus with hyperglycemia; Z21 Asymptomatic human immunodeficiency virus [HIV] infection status; R46.89 Other symptoms and signs involving appearance and behavior; Z91.14 Patient's other noncompliance with medication regimen; Z79.899 Other long term (current) drug therapy; Z82.49 Family history of ischemic heart disease and other diseases of the circulatory system; Z83.3 Family history of diabetes mellitus; Z79.4 Long term (current) use of insulin; Z79.2 Long term (current) use of antibiotics
CPT/HCPCS: 36415; 70450; 80048; 80053; 80307; 80320; 81001; 82140; 82962; 83735; 84100; 85007; 85025; 93005; 93010; 96365; 96375; G0480; J1815; J2060; J7030

== ENCOUNTER 2020-06-09 15:35 | Observation (INO) | payer MEDICAID ==
[2020-06-09] MEDS ORDERED: traMADol 50 MG TAB PO ONE (16:58)
--- NOTE | 2020-06-09 17:04 | Emergency Department Report ---
HPI - General Chief Complaint: Abdominal Pain Time Seen by Provider: 06/09/20 16:48 - HPI HPI: Room 7 The patient is a 29-year-old male present with a chief complaint of weakness and lower extremity edema. The patient has a history end-stage renal disease and states he has missed his last 2 dialysis appointments last being dialyzed 06/04/2020. The patient states she has had decreased energy and is noticed lower extremity edema. Patient denies fever and initially denied pain of any type but upon further questioning patient admits to chronic low back pain and pain in his lower extremities from the edema. Patient denies any other forms of pain. Patient denies any preceding trauma. ED Past Medical Hx - Past Medical History Previous Medical History?: Yes Hx Diabetes: Yes Hx Renal Disease: Yes (HD every [facility] nephrology) Hx Seizures: Yes Hx HIV: Yes (States last viral load was undetectable but unaware of last CD4) - Surgical History Past Surgical History?: No Additional Surgical History: Left upper extremity fistula. Right chest permacath - Family History Family history: no significant - Social History Smoking Status: Never Smoker Substance Use Type: None (Denies illicit drug use) - Medications Home Medications: Home Medications Medication Instructions Recorded Confirmed Last Taken Type Abacavir Sulfate/Lamivudine 1 each PO QDAY 11/11/17 11/11/17 Unknown History [Abacavir-Lamivudine 600-300 mg] Calcium Carbonate/Vitamin D3 1 each PO QDAY 11/11/17 11/11/17 Unknown History [Calcium 500-Vit D3 200 Tablet] Ciprofloxacin HCl [Ciprofloxacin 500 mg PO BID 11/11/17 11/11/17 Unknown History TAB] Darunavir Ethanolate [Prezista] 800 mg PO QDAY 11/11/17 11/11/17 Unknown History Detemir (Nf) [Levemir (Nf)] 10 units SUB-Q QHS 11/11/17 11/11/17 Unknown History Docusate Sodium [Colace CAP] 100 mg PO QDAY 11/11/17 11/11/17 Unknown History Omeprazole 20 mg PO QDAY 11/11/17 11/11/17 Unknown History Ritonavir 100 mg PO QDAY 11/11/17 11/11/17 Unknown History Sennosides 8.6 mg PO QHS PRN 11/11/17 11/11/17 Unknown History metroNIDAZOLE [Metronidazole] 500 mg PO QDAY 11/11/17 11/11/17 Unknown History raNITIdine HCl [Acid Youtuber] 150 mg PO QDAY 11/11/17 11/11/17 Unknown History Insulin Regular, Human Inj 0 unit SQ AC #1 vial 11/12/17 Unknown Rx [NovoLIN R Inj] ED Review of Systems ROS: Stated complaint: FLUID BUILD UP LT LEG/ARM Other details as noted in HPI Constitutional: denies: fever Respiratory: shortness of breath Cardiovascular: denies: chest pain Endocrine: no symptoms reported Gastrointestinal: denies: abdominal pain Musculoskeletal: back pain Neurological: denies: headache Hematological/Lymphatic: other (Bilateral lower extremity edema) Physical Exam - Physical Exam Vital Signs: Vital Signs 06/09/20 06/09/20 06/09/20 15:39 15:40 15:45 Temperature 98.1 F Pulse Rate 76 Respiratory 16 18 18 Rate Blood Pressure 147/96 Blood Pressure 147/96 [Right] O2 Sat by Pulse 100 Oximetry Physical Exam: GENERAL: The patient is well-developed well-nourished male lying on stretcher not appearing to be in acute distress. [] HEENT: Normocephalic. Atraumatic. Extraocular motions are intact. Patient has moist mucous membranes. NECK: Supple. Trachea midline CHEST/LUNGS: Clear to auscultation. There is no respiratory distress noted. HEART/CARDIOVASCULAR: Regular. There is no tachycardia. There is no gallop rub or murmur. ABDOMEN: Abdomen is soft, nontender. Patient has normal bowel sounds. There is no abdominal distention. SKIN: There is no rash. There is 1+ bilateral lower extremity pitting edema. There is no diaphoresis. NEURO: The patient is awake, alert, and oriented. The patient is cooperative. The patient has normal speech MUSCULOSKELETAL: There is tenderness to palpation of the left lower extremity patient states secondary to the edema. There is no evidence of acute injury. ED Course Vital Signs 06/09/20 06/09/20 06/09/20 15:39 15:40 15:45 Temperature 98.1 F Pulse Rate 76 Respiratory 16 18 18 Rate Blood Pressure 147/96 Blood Pressure 147/96 [Right] O2 Sat by Pulse 100 Oximetry - Consultations Consultation #1: 06/09/20 18:51 Nephrology paged 06/09/20 18:55 Case, labs and imaging discussed with Dr. Collazo-states will arrange for hemodialysis in the morning as medications given in ED should shift and temporize potassium ED Medical Decision Making - Lab Data Result diagrams: 06/09/20 17:21 06/09/20 17:21 Laboratory Tests 06/09/20 06/09/20 06/09/20 17:21 17:21 17:21 WBC 9.4 RBC 4.68 Hgb 11.1 L Hct 34.8 L MCV 74 L MCH 24 L MCHC 32 RDW 21.5 H Plt Count 316 Lymph % (Auto) 5.7 L [place] % (Auto) 5.7 Eos % (Auto) 0.2 Baso % (Auto) 0.4 Lymph # 0.5 L [place] # 0.5 Eos # 0.0 Baso # 0.0 Seg Neutrophils % 88.0 H Seg Neutrophils # 8.3 H Sodium 129 L Potassium 6.9 H* Chloride 85 L Carbon Dioxide 12 L Anion Gap 39 BUN 111 H Creatinine 11.9 H Estimated GFR 6 BUN/Creatinine Ratio 9 Glucose 212 H Calcium 9.3 Magnesium TSH 2.830 Free T4 0.82 06/09/20 17:21 WBC RBC Hgb Hct MCV MCH MCHC RDW Plt Count Lymph % (Auto) [place] % (Auto) Eos % (Auto) Baso % (Auto) Lymph # [place]on # Eos # Baso # Seg Neutrophils % Seg Neutrophils # Sodium Potassium Chloride Carbon Dioxide Anion Gap BUN Creatinine Estimated GFR BUN/Creatinine Ratio Glucose Calcium Magnesium 2.50 H TSH Free T4 - EKG Data -: EKG Interpreted by Me EKG shows normal: sinus rhythm Rate: normal - EKG Data When compared to previous EKG there are: previous EKG unavailable Interpretation: nonspecific ST-T wave kinza (T wave inversions in leads II, aVF, V4, V5, V6.) - Radiology Data Radiology results: report reviewed (Chest x-ray), image reviewed (Chest x-ray) interpreted by me: Chest [id number] right-sided pleural effusion. No pneumothorax. No definite focal infiltrate [facility] [address] [place] [address] XRay Report Signed Patient: ROEL CHAPMAN MR#: [id number] : 1990 Acct:[id number] Age/Sex: 29 / M ADM Date: 06/09/20 Loc: ED Attending Dr: Ordering Physician: LYNN ANTONY MD Date of Service: 06/09/20 Procedure(s): XR chest 1V ap Accession Number(s): [id number] cc: LYNN ANTONY MD Fluoro Time In Minutes: CHEST 1 VIEW 06/09/2020 4:57 PM INDICATION / CLINICAL INFORMATION: Missed hemodialysis, shortness of breath. COMPARISON: None available. FINDINGS: SUPPORT DEVICES: Right IJ central venous catheter appears well-positioned. HEART / MEDIASTINUM: No significant abnormality. LUNGS / PLEURA: There are small bilateral pleural effusions and there is mild bilateral edema. No pneumothorax. ADDITIONAL FINDINGS: No significant additional findings. IMPRESSION: 1. Small bilateral pleural effusions and mild pulmonary edema. S igner Name: Flavio Colorado MD Signed: 06/09/2020 5:19 PM Workstation Name: [id number] Transcribed By: IDANIA Dictated By: Flavio Colorado MD Electronically Authenticated By: Flavio Colorado MD Signed Date/Time: 06/09/201718 DD/ 17 TD/TT: - Differential Diagnosis ESRD, hyperkalemia, azotemia, uremia Critical care attestation.: If time is entered above; I have spent that time in minutes in the direct care of this critically ill patient, excluding procedure time. ED Disposition Clinical Impression: Hyperkalemia, ESRD needing dialysis, Pleural effusion Disposition: OP ADMIT IP TO THIS HOSP Is pt being admited?: Yes Does the pt Need Aspirin: No Condition: Fair Referrals: PRIMARY CARE, [Primary Care Provider] - 3-5 Days Time of Disposition: 18:57 (Hospitalist paged (Dr Olivo))
--- NOTE | 2020-06-09 17:23 | XRay Report ---
CHEST 1 VIEW 06/09/2020 4:57 PM INDICATION / CLINICAL INFORMATION: Missed hemodialysis, shortness of breath. COMPARISON: None available. FINDINGS: SUPPORT DEVICES: Right IJ central venous catheter appears well-positioned. HEART / MEDIASTINUM: No significant abnormality. LUNGS / PLEURA: There are small bilateral pleural effusions and there is mild bilateral edema. No pne umothorax. ADDITIONAL FINDINGS: No significant additional findings. IMPRESSION: 1. Small bilateral pleural effusions and mild pulmonary edema. Signer Name: Flavio Colorado MD Signed: 06/09/2020 5:19 PM Workstation Name: [id number]
[2020-06-09 17:56] LABS: Basophils % (Auto) 0.4 % (0.0-1.8); Eosinophils % (Auto) 0.2 % (0.0-4.3); Hematocrit 34.8 % (35.5-45.6); Hemoglobin 11.1 gm/dl (11.8-15.2); Lymphocytes # (Auto) 0.5 K/mm3 (1.2-5.4); Lymphocytes % (Auto) 5.7 % (13.4-35.0); Mean Corpuscular HGB Conc 32 % (32-34); Mean Corpuscular Volume 74 fl (84-94); Monocytes # (Auto) 0.5 K/mm3 (0.0-0.8); Monocytes % (Auto) 5.7 % (0.0-7.3); Platelet Count 316 K/mm3 (140-440); Red Blood Count 4.68 M/mm3 (3.65-5.03)
[2020-06-09 17:57] LABS: Red Cell Distribution Width 21.5 % (13.2-15.2)
[2020-06-09 18:14] LABS: Calcium 9.3 mg/dL (8.4-10.2)
[2020-06-09 18:30] LABS: Free T4 (Free Thyroxine) 0.82 ng/dL (0.76-1.46)
[2020-06-09] MEDS ORDERED: ALBUTEROL 2.5 MG/3 ML NEBU IH ONE ×2 (18:48→19:47)
[2020-06-09] MEDS ORDERED: SODIUM POLYSTYRENE 15 GM/60 ML ORAL LIQD PO ONE (18:49)
[2020-06-09] MEDS ORDERED: INSULIN REGULAR, HUMAN 100 UNIT/ML 3ML VIAL IV ONE (18:49)
[2020-06-09] MEDS ORDERED: DEXTROSE 50% IN WATER (25GM) 50 ML SYRINGE IV ONE (18:49)
[2020-06-09] MEDS ORDERED: SODIUM BICARB 8.4% 50 MEQ/50 ML SYRINGE IV ONE (18:49)
[2020-06-09] MEDS ORDERED: CALCIUM GLUCONATE 1,000 MG in SODIUM CHLORIDE 0.9% 100 ML IV ONE (19:30)
[2020-06-09] MEDS ORDERED: SODIUM CHLORIDE 0.9% 100 ML IV PRN (19:36)
[2020-06-09] MEDS ORDERED: INSULIN REGULAR, HUMAN 100 UNITS/1 ML ONE (20:00)
[2020-06-09] MEDS ORDERED: INSULIN LISPRO 100 UNIT/ML SUB-Q ONE ×2 (20:00)
[2020-06-09] MEDS ORDERED: SENNOSIDES 8.6 MG TAB PO PRN (22:08)
--- NOTE | 2020-06-09 22:08 | History and Physical Report ---
History of Present Illness Date of examination: 06/09/20 Date of admission: 06/09/20 19:11 Chief complaint: Missed dialysis #2 increasing shortness of breath History of present illness: 29-year-old male with history of end-stage renal disease noncompliant with dialy sis comes in for increasing shortness of breath and decreased energy levels. Also noticed lower extremity edema. Did not have dialysis since 06/04/2020. Patient has orthopnea. Patient also has chronic low back pain. No chest pain. Patient has history of hypertension and seizure disorder and HIV. - Past Medical History Previous Medical History?: Yes Diabetes: Yes Renal Disease: Yes (HD every MWF [place] nephrology) Seizures: Yes HIV: Yes (States last viral load was undetectable but unaware of last CD4) - Surgical History Past Surgical History?: No Additional Surgical History: Left upper extremity fistula. Right chest permacath - Family History Family history: no significant - Social History Smoking Status: Never Smoker Substance Use Type: None (Denies illicit drug use) - Medications Home Medications: Home Medications Medication Instructions Recorded Confirmed Last Taken Type Abacavir Sulfate/Lamivudine 1 each PO QDAY 11/11/17 11/11/17 Unknown History [Abacavir-Lamivudine 600-300 mg] Calcium Carbonate/Vitamin D3 1 each PO QDAY 11/11/17 11/11/17 Unknown History [Calcium 500-Vit D3 200 Tablet] Ciprofloxacin HCl [Ciprofloxacin 500 mg PO BID 11/11/17 11/11/17 Unknown History TAB] Darunavir Ethanolate [Prezista] 800 mg PO QDAY 11/11/17 11/11/17 Unknown History Detemir (Nf) [Levemir (Nf)] 10 units SUB-Q QHS 11/11/17 11/11/17 Unknown History Docusate Sodium [Colace CAP] 100 mg PO QDAY 11/11/17 11/11/17 Unknown History Omeprazole 20 mg PO QDAY 11/11/17 11/11/17 Unknown History Ritonavir 100 mg PO QDAY 11/11/17 11/11/17 Unknown History Sennosides 8.6 mg PO QHS PRN 11/11/17 11/11/17 Unknown History metroNIDAZOLE [Metronidazole] 500 mg PO QDAY 11/11/17 11/11/17 Unknown History raNITIdine HCl [Acid Reacher] 150 mg PO QDAY 11/11/17 11/11/17 Unknown History Insulin Regular, Human Inj 0 unit SQ AC #1 vial 11/12/17 Unknown Rx [NovoLIN R Inj] Review of Systems ROS: Stated complaint: FLUID BUILD UP LT LEG/ARM Other details as noted in HPI Constitutional: denies: fever Respiratory: shortness of breath Cardiovascular: denies: chest pain Endocrine: no symptoms reported Gastrointestinal: denies: abdominal pain Musculoskeletal: back pain Neurological: denies: headache Hematological/Lymphatic: other (Bilateral lower extremity edema) Medications and Allergies Allergies Allergy/AdvReac Type Severity Reaction Status Date / Time peanut Allergy Unknown Verified 11/11/17 01:31 sea food Allergy Rash Uncoded 11/11/17 01:31 Home Medications Medication Instructions Recorded Confirmed Last Taken Type Abacavir Sulfate/Lamivudine 1 each PO QDAY 11/11/17 11/11/17 Unknown History [Abacavir-Lamivudine 600-300 mg] Calcium Carbonate/Vitamin D3 1 each PO QDAY 11/11/17 11/11/17 Unknown History [Calcium 500-Vit D3 200 Tablet] Ciprofloxacin HCl [Ciprofloxacin 500 mg PO BID 11/11/17 11/11/17 Unknown History TAB] Darunavir Ethanolate [Prezista] 800 mg PO QDAY 11/11/17 11/11/17 Unknown History Detemir (Nf) [Levemir (Nf)] 10 units SUB-Q QHS 11/11/17 11/11/17 Unknown History Docusate Sodium [Colace CAP] 100 mg PO QDAY 11/11/17 11/11/17 Unknown History Omeprazole 20 mg PO QDAY 11/11/17 11/11/17 Unknown History Ritonavir 100 mg PO QDAY 11/11/17 11/11/17 Unknown History Sennosides 8.6 mg PO QHS PRN 11/11/17 11/11/17 Unknown History metroNIDAZOLE [Metronidazole] 500 mg PO QDAY 11/11/17 11/11/17 Unknown History raNITIdine HCl [Acid Reacher] 150 mg PO QDAY 11/11/17 11/11/17 Unknown History Insulin Regular, Human Inj 0 unit SQ AC #1 vial 11/12/17 Unknown Rx [NovoLIN R Inj] Active Meds: Active Medications Sodium Chloride (Nacl 0.9%) 100 mls @ 999 mls/hr IV FREDERICK PRN PRN Reason: Hypotension Exam - Constitutional Vitals: Temp Pulse Resp BP Pulse Ox 98.1 F 95 H 18 125/80 95 06/09/20 20:15 06/09/20 22:00 06/09/20 21:00 06/09/20 22:00 06/09/20 21:00 General appearance: Present: no acute distress, well-nourished - EENT Eyes: Present: PERRL ENT: hearing intact, clear oral mucosa - Neck Neck: Present: supple, normal ROM - Respiratory Respiratory effort: normal Respiratory: bilateral: CTA - Cardiovascular Heart Sounds: Present: S1 & S2. Absent: rub, click - Extremities Extremities: pulses symmetrical, No edema Peripheral Pulses: within normal limits - Abdominal General gastrointestinal: Present: soft, non-tender, non-distended, normal bowel sounds Male genitourinary: Present: normal - Integumentary Integumentary: Present: clear, warm, dry - Musculoskeletal Musculoskeletal: gait normal, strength equal bilaterally - Psychiatric Psychiatric: appropriate mood/affect, intact judgment & insight - Neurologic Neurologic: CNII-XII intact, moves all extremities HEART Score - HEART Score History: Moderately suspicious Age: < 45 Risk factors: > 3 risk factors or hx of atherosclerotic disease Troponin: 1-3x normal limit - Critical Actions Critical Actions: 4-6 pts:12-16.6% risk of adverse cardiac event. Should be admitted Results - Labs CBC & Chem 7: 06/10/20 04:37 06/10/20 04:37 Labs: Laboratory Last Values WBC 9.4 K/mm3 (4.5-11.0) 06/09/20 17:21 RBC 4.68 M/mm3 (3.65-5.03) 06/09/20 17:21 Hgb 11.1 gm/dl (11.8-15.2) L 06/09/20 17:21 Hct 34.8 % (35.5-45.6) L 06/09/20 17:21 MCV 74 fl (84-94) L 06/09/20 17:21 MCH 24 pg (28-32) L 06/09/20 17:21 MCHC 32 % (32-34) 06/09/20 17:21 RDW 21.5 % (13.2-15.2) H 06/09/20 17:21 Plt Count 316 K/mm3 (140-440) 06/09/20 17:21 Lymph % (Auto) 5.7 % (13.4-35.0) L 06/09/20 17:21 [place] % (Auto) 5.7 % (0.0-7.3) 06/09/20 17:21 Eos % (Auto) 0.2 % (0.0-4.3) 06/09/20 17:21 Baso % (Auto) 0.4 % (0.0-1.8) 06/09/20 17:21 Lymph # 0.5 K/mm3 (1.2-5.4) L 06/09/20 17:21 [place] # 0.5 K/mm3 (0.0-0.8) 06/09/20 17:21 Eos # 0.0 K/mm3 (0.0-0.4) 06/09/20 17:21 Baso # 0.0 K/mm3 (0.0-0.1) 06/09/20 17:21 Seg Neutrophils % 88.0 % (40.0-70.0) H 06/09/20 17:21 Seg Neutrophils # 8.3 K/mm3 (1.8-7.7) H 06/09/20 17:21 Sodium 129 mmol/L (137-145) L 06/09/20 17:21 Potassium 6.9 mmol/L (3.6-5.0) H* 06/09/20 17:21 Chloride 85 mmol/L (98-107) L 06/09/20 17:21 Carbon Dioxide 12 mmol/L (22-30) L 06/09/20 17:21 Anion Gap 39 mmol/L 06/09/20 17:21 BUN 111 mg/dL (9-20) H 06/09/20 17:21 Creatinine 11.9 mg/dL (0.8-1.3) H 06/09/20 17:21 Estimated GFR 6 ml/min 06/09/20 17:21 BUN/Creatinine Ratio 9 % 06/09/20 17:21 Glucose 212 mg/dL (75-100) H 06/09/20 17:21 Calcium 9.3 mg/dL (8.4-10.2) 06/09/20 17:21 Magnesium 2.50 mg/dL (1.7-2.3) H 06/09/20 17:21 TSH 2.830 mlU/mL (0.270-4.200) 06/09/20 17:21 Free T4 0.82 ng/dL (0.76-1.46) 06/09/20 17:21 Short CBC 06/09/20 06/10/20 Range/Units 17:21 04:37 WBC 9.4 7.8 (4.5-11.0) K/mm3 Hgb 11.1 L 10.5 L (11.8-15.2) gm/dl Hct 34.8 L 33.2 L (35.5-45.6) % Plt Count 316 266 (140-440) K/mm3 BMP 06/09/20 06/10/20 17:21 04:37 Sodium 129 L 135 L Potassium 6.9 H* 4.1 D Chloride 85 L 90.7 L Carbon Dioxide 12 L 17 L BUN 111 H 63 H Creatinine 11.9 H 8.6 H Glucose 212 H 400 H Calcium 9.3 8.4 Liver Function 06/10/20 Range/Units 04:37 Total Bilirubin 0.60 (0.1-1.2) mg/dL AST 58 H (5-40) units/L ALT 37 (7-56) units/L Alkaline Phosphatase 170 H (35-129) units/L Albumin 3.4 L (3.9-5) g/dL - Imaging and Cardiology EKG: report reviewed Chest x-ray: report reviewed Imaging and Cardiology: Chest x-ray Small bilateral pleural effusions and mild pulmonary edema Assessment and Plan Advance Directives: Yes (Full code) VTE prophylaxis?: Chemical Plan of care discussed with patient/family: Yes - Patient Problems (1) Volume overload Current Visit: Yes Status: Acute Plan to address problem: Secondary to missed hemodialysis Patient needs emergent hemodialysis Nephrology consulted (2) ESRD needing dialysis Current Visit: Yes Status: Acute Plan to address problem: Patient is going for emergent hemodialysis Increase ultrafiltration (3) Hyperkalemia Current Visit: Yes Status: Acute Plan to address problem: Hyperkalemia treated Also patient getting hemodialysis with a low potassium bath (4) Pleural effusion Current Visit: Yes Status: Acute Plan to address problem: Secondary to volume overload Should resolve with dialysis (5) HIV (human immunodeficiency virus infection) Current Visit: Yes Status: Chronic Qualifiers: HIV symptom status: asymptomatic Qualified Code(s): Z21 - Asymptomatic human immunodeficiency virus [HIV] infection status Plan to address problem: Continue antiretrovirals Follow-up with ID as outpatient (6) Hypertension Current Visit: Yes Status: Chronic Plan to address problem: Continue antihypertensives (7) DVT prophylaxis Current Visit: Yes Status: Acute Plan to address problem: On heparin and GI prophylaxis
[2020-06-09] MEDS ORDERED: ACETAMINOPHEN 325 MG TAB PO PRN (22:10)
[2020-06-09] MEDS ORDERED: ONDANSETRON 4 MG/2 ML INJ IV PRN (22:10)
[2020-06-09] MEDS ORDERED: HYDROmorphone 1 MG/1 ML INJ IV PRN (22:10)
[2020-06-09] MEDS ORDERED: oxyCODONE /ACETAMINOPHEN 5-325MG TAB PO PRN (22:10)
[2020-06-09 22:36] LABS: Hepatitis B Surface Antigen Non-Reactive (Negative); Hepatitis C Virus Antibody Non-Reactive (NonReactive)
[2020-06-10 06:28] LABS: Basophils # (Auto) 0.1 K/mm3 (0.0-0.1); Basophils % (Auto) 0.6 % (0.0-1.8); Eosinophils # (Auto) 0.1 K/mm3 (0.0-0.4); Eosinophils % (Auto) 0.9 % (0.0-4.3); Hematocrit 33.2 % (35.5-45.6); Hemoglobin 10.5 gm/dl (11.8-15.2); Lymphocytes # (Auto) 0.6 K/mm3 (1.2-5.4); Lymphocytes % (Auto) 7.3 % (13.4-35.0); Mean Corpuscular HGB Conc 32 % (32-34); Mean Corpuscular Volume 75 fl (84-94); Monocytes # (Auto) 0.6 K/mm3 (0.0-0.8); Monocytes % (Auto) 8.2 % (0.0-7.3); Platelet Count 266 K/mm3 (140-440); Red Blood Count 4.44 M/mm3 (3.65-5.03)
[2020-06-10 06:30] LABS: Red Cell Distribution Width 21.4 % (13.2-15.2)
[2020-06-10 06:46] LABS: Albumin 3.4 g/dL (3.9-5); Calcium 8.4 mg/dL (8.4-10.2)
[2020-06-10] MEDS: INSULIN LISPRO 100 UNIT/ML VIAL 3 mL SUB-Q SCH ×3 (08:57→17:43)
[2020-06-10] MEDS ORDERED: PANTOPRAZOLE 20 MG TAB PO SCH (10:00)
[2020-06-10] MEDS ORDERED: LAMIVUDINE PO SCH (10:00)
[2020-06-10] MEDS ORDERED: ABACAVIR 300 MG TAB PO SCH (10:00)
[2020-06-10] MEDS ORDERED: RITONAVIR 100 MG TAB PO SCH (10:00)
[2020-06-10] MEDS ORDERED: DARUNAVIR 800 MG TAB PO SCH (10:00)
[2020-06-10] MEDS ORDERED: DOCUSATE SODIUM 100 MG CAP PO SCH (10:00)
[2020-06-10] MEDS ORDERED: [UNRECOGNIZED DRUG - OTHER] PO SCH (10:00)
[2020-06-10] MEDS ORDERED: CALCIUM CARBONATE/VITAMIN D3 500 MG-200 UNIT TAB PO SCH (10:00)
[2020-06-10] MEDS ORDERED: ABACAVIR SULFATE PO SCH (10:00)
[2020-06-10] MEDS ORDERED: HEPARIN 5,000 UNIT/1 ML VIAL SUB-Q SCH (10:00)
--- NOTE | 2020-06-10 10:55 | Consultation ---
History of Present Illness - Reason for Consult Consult date: 06/10/20 end stage renal disease - History of Present Illness patient with PMH of ESRD on HD since 09/18, he receives tx every MWF, last HD last Sunday, was admitted yesterday for worsening shortness of breath, was found to have hyperkalemia and STAT HD ordered which was tolerated well. he feels better this AM but remains to have some SOB Past History Past Medical History: ESRD, hypertension Medications and Allergies Allergies Allergy/AdvReac Type Severity Reaction Status Date / Time peanut Allergy Unknown Verified 11/11/17 01:31 sea food Allergy Rash Uncoded 11/11/17 01:31 Home Medications Medication Instructions Recorded Confirmed Last Taken Type Abacavir Sulfate/Lamivudine 1 each PO QDAY 11/11/17 11/11/17 Unknown History [Abacavir-Lamivudine 600-300 mg] Calcium Carbonate/Vitamin D3 1 each PO QDAY 11/11/17 11/11/17 Unknown History [Calcium 500-Vit D3 200 Tablet] Ciprofloxacin HCl [Ciprofloxacin 500 mg PO BID 11/11/17 11/11/17 Unknown History TAB] Darunavir Ethanolate [Prezista] 800 mg PO QDAY 11/11/17 11/11/17 Unknown History Detemir (Nf) [Levemir (Nf)] 10 units SUB-Q QHS 11/11/17 11/11/17 Unknown History Docusate Sodium [Colace CAP] 100 mg PO QDAY 11/11/17 11/11/17 Unknown History Omeprazole 20 mg PO QDAY 11/11/17 11/11/17 Unknown History Ritonavir 100 mg PO QDAY 11/11/17 11/11/17 Unknown History Sennosides 8.6 mg PO QHS PRN 11/11/17 11/11/17 Unknown History metroNIDAZOLE [Metronidazole] 500 mg PO QDAY 11/11/17 11/11/17 Unknown History raNITIdine HCl [Acid Remote Mortgage Underwriter] 150 mg PO QDAY 11/11/17 11/11/17 Unknown History Insulin Regular, Human Inj 0 unit SQ AC #1 vial 11/12/17 Unknown Rx [NovoLIN R Inj] Active Meds: Active Medications Abacavir Sulfate (Ziagen) 600 mg PO QAM [facility] Last Admin: 06/10/20 09:00 Dose: 600 mg Documented by: Acetaminophen (Tylenol) 650 mg PO Q4H PRN PRN Reason: Pain MILD(1-3)/Fever >100.5/ABRAMS Calcium/Vitamin D ([place] D 500 Mg-200 Unit) 1 each PO QDAY [facility] Last Admin: 06/10/20 09:01 Dose: 1 each Documented by: Darunavir (Prezista) 800 mg PO QDAY [facility] Last Admin: 06/10/20 09:01 Dose: 800 mg Documented by: Docusate Sodium (Colace) 100 mg PO QDAY [facility] Last Admin: 06/10/20 09:01 Dose: 100 mg Documented by: Heparin Sodium (Porcine) (Heparin) 5,000 unit SUB-Q Q12HR [facility] Last Admin: 06/10/20 09:02 Dose: 5,000 unit Documented by: Hydromorphone HCl (Dilaudid) 0.5 mg IV Q3H PRN PRN Reason: Pain , Severe (7-10) Sodium Chloride (Nacl 0.9%) 100 mls @ 999 mls/hr IV FREDERICK PRN PRN Reason: Hypotension Insulin Glargine (Lantus) 10 units SUB-Q QHS [facility] Insulin Human Lispro (Humalog) 0 unit SUB-Q ACHS [facility]; Protocol Last Admin: 06/10/20 08:57 Dose: 6 unit Documented by: Lamivudine (Epivir) 300 mg PO QAM [facility] Last Admin: 06/10/20 09:02 Dose: 300 mg Documented by: Ondansetron HCl (Zofran) 4 mg IV Q8H PRN PRN Reason: Nausea And Vomiting Oxycodone/Acetaminophen (Percocet 5/325) 1 tab PO Q6H PRN PRN Reason: Pain, Moderate (4-6) Pantoprazole Sodium (Protonix) 20 mg PO QDAY [facility] Last Admin: 06/10/20 09:01 Dose: 20 mg Documented by: Ritonavir (Ritonavir) 100 mg PO QDAY [facility] Last Admin: 06/10/20 09:02 Dose: 100 mg Documented by: Senna (Senokot) 8.6 mg PO QHS PRN PRN Reason: Constipation Sodium Chloride (Sodium Chloride Flush Syringe 10 Ml) 10 ml IV BID [facility] Last Admin: 06/10/20 09:03 Dose: 10 ml Documented by: Sodium Chloride (Sodium Chloride Flush Syringe 10 Ml) 10 ml IV PRN PRN PRN Reason: LINE FLUSH Review of Systems All systems: negative (SOB) Exam - Vital Signs Vital signs: Vital Signs Resp 16 06/09/20 15:39 - General Appearance General appearance: well-developed, well-nourished, appears stated age EENT: ATNC, PERRL, mucous membranes moist Neck: Present: neck supple Respiratory: Decreased Breath Sounds Heart: regular, S1S2 Gastrointestinal: Present: normoactive bowel sounds. Absent: tenderness, distended Integumentary: no rash, warm and dry Neurologic: no focal deficit, no asterixis, alert and oriented x3 Musculoskeletal: Present: other (trace pitting edema in BLE) Psychiatric: mood/affect appropriate, cooperative Results - Lab Results 06/10/20 04:37 06/10/20 04:37 Most recent lab results Calcium 8.4 mg/dL (8.4-10.2) 06/10/20 04:37 Magnesium 2.50 mg/dL (1.7-2.3) H 06/09/20 17:21 Assessment and Plan ESRD on HD Hyperkalemia volume overload HTN pleural effusion HD again today via R permcath for clearance and volume removal will assess HD needs daily renally dose meds strict I&O daily weight Migue Martins MD [phone]
[2020-06-10 17:12] VITALS: BP 183/107
[2020-06-10] MEDS ORDERED: cloNIDine 0.2 MG TAB PO PRN (18:24)
--- NOTE | 2020-06-10 18:39 | Discharge Summary ---
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 Also noticed lower extremity edema. Did not have dialysis since 06/04/2020. Patient has orthopnea. Patient also has chronic low back pain. No chest pain. Patient has history of hypertension and seizure disorder and HIV. Patient has good improvement with hemodialysis on day 1 and day 2. Patient wants to go home and sign AMA. Clonidine given to bring the blood pressure down and discharge of the blood pressure is below 160/100. - Past Medical History Previous Medical History?: Yes Diabetes: Yes Renal Disease: Yes (HD every [facility] nephrology) Seizures: Yes HIV: Yes (States last viral load was undetectable but unaware of last CD4) - Patient Problems (1) Volume overload Current Visit: Yes Status: Acute Plan to address problem: Secondary to missed hemodialysis Patient needs emergent hemodialysis Nephrology consulted At dialysis 2 sessions. (2) ESRD needing dialysis Current Visit: Yes Status: Acute Plan to address problem: Patient is going for emergent hemodialysis Increase ultrafiltration Patient needs to be compliant. Counseled. (3) Hyperkalemia Current Visit: Yes Status: Acute Plan to address problem: Hyperkalemia treated Also patient getting hemodialysis with a low potassium bath Hyperkalemia resolved. (4) Pleural effusion Current Visit: Yes Status: Acute Plan to address problem: Secondary to volume overload Should resolve with dialysis Pleural effusion improved. (5) HIV (human immunodeficiency virus infection) Current Visit: Yes Status: Chronic Qualifiers: HIV symptom status: asymptomatic Qualified Code(s): Z21 - Asymptomatic human immunodeficiency virus [HIV] infection status Plan to address problem: Continue antiretrovirals Follow-up with ID as outpatient (6) Hypertension Current Visit: Yes Status: Chronic Plan to address problem: Continue antihypertensives Blood pressure medications adjusted. Disposition: DC-01 TO HOME OR SELFCARE Time spent for discharge: 35 minutes - Discharge Diagnoses (1) Volume overload Status: Acute (2) ESRD needing dialysis Status: Acute (3) Hyperkalemia Status: Acute (4) Pleural effusion Status: Acute (5) HIV (human immunodeficiency virus infection) Status: Chronic Qualifiers: HIV symptom status: asymptomatic Qualified Code(s): Z21 - Asymptomatic human immunodeficiency virus [HIV] infection status (6) Hypertension Status: Chronic (7) DVT prophylaxis Status: Acute Core Measure Documentation - Palliative Care Palliative Care/ Comfort Measures: Not Applicable - Core Measures Any of the following diagnoses?: none Exam - Constitutional Vitals: Temp Pulse Resp BP Pulse Ox 98.5 F 93 H 18 183/107 100 06/10/20 17:12 06/10/20 17:23 06/10/20 17:12 06/10/20 17:23 06/10/20 17:12 General appearance: Present: no acute distress, well-nourished - EENT Eyes: Present: PERRL ENT: hearing intact, clear oral mucosa - Neck Neck: Present: supple, normal ROM - Respiratory Respiratory effort: normal Respiratory: bilateral: CTA - Cardiovascular Heart rate: 78 Rhythm: regular Heart Sounds: Present: S1 & S2. Absent: rub, click - Extremities Extremities: pulses symmetrical, No edema Peripheral Pulses: within normal limits - Abdominal General gastrointestinal: Present: soft, non-tender, non-distended, normal bowel sounds Male genitourinary: Present: normal - Integumentary Integumentary: Present: clear, warm, dry - Musculoskeletal Musculoskeletal: gait normal, strength equal bilaterally - Psychiatric Psychiatric: appropriate mood/affect, intact judgment & insight - Neurologic Neurologic: CNII-XII intact, moves all extremities Plan Activity: no restrictions Diet: renal Follow up with: JAI PERALTA MD [Primary Care Provider] - 3-5 Days JOSE DE PAZ MD [Staff Physician] - 7 Days
[2020-06-10] MEDS ORDERED: DETEMIR SUB-Q SCH (22:00)
[2020-06-10] MEDS ORDERED: INSULIN GLARGINE 100 UNITS/ML SUB-Q SCH (22:00)
== END 2020-06-10 23:54 | disposition home or self-care (01) ==
LOC: ED 15:35 → 4A 19:11
PROVIDERS: ADMIT Internal Medicine; ATTEND Internal Medicine
DX: E87.70 Fluid overload, unspecified (principal); I12.0 Hypertensive chronic kidney disease with stage 5 chronic kidney disease or end stage renal disease; N18.6 End stage renal disease; J90 Pleural effusion, not elsewhere classified; E87.5 Hyperkalemia; Z21 Asymptomatic human immunodeficiency virus [HIV] infection status; Z99.2 Dependence on renal dialysis; Z79.4 Long term (current) use of insulin; Z79.899 Other long term (current) drug therapy
CPT/HCPCS: 36415; 71045; 80048; 80053; 80074; 82962; 83036; 83735; 84439; 84443; 85025; 87641; 93005; 94644; 96372; 96374; 96375; 99285; G0378; J0610; J1644; J1815

== ENCOUNTER 2020-08-16 12:17 | Emergency (ER) | payer MEDICAID ==
--- NOTE | 2020-08-16 12:26 | Emergency Department Report ---
Blank Doc - Documentation Documentation: 30-year-old male without a history of heart failure and CAD presents emerged d epartment complaining of sudden onset of shortness of breath with orthopnea and chest pain This initial assessment/diagnostic orders/clinical plan/treatment(s) is/are subject to change based on patients health status, clinical progression and re- assessment by fellow clinical providers in the ED. Further treatment and workup at subsequent clinical providers discretion. Patient/guardian urged not to elope from the ED as their condition may be serious if not clinically assessed and managed. Initial orders include: 2 chest pain, CHF eval
[2020-08-16 12:35] VITALS: BP 160/126
--- NOTE | 2020-08-16 13:23 | XRay Report ---
CHEST 2 VIEWS INDICATION / CLINICAL INFORMATION: Chest Pain. COMPARISON: 06/09/2020. FINDINGS: SUPPORT DEVICES: Right-sided dual-lumen central venous catheter remains in stable position. HEART / MEDIASTINUM: Stable. LUNGS / PLEURA: There is a trace left-sided pleural effusion. No focal airspace consolidation is iden tified. No pneumothorax. ADDITIONAL FINDINGS: No significant additional findings. IMPRESSION: Trace left pleural effusion. Otherwise, no acute cardiopulmonary abnormality. Signer Name: Reuben Bocanegra MD Signed: 08/16/2020 1:19 PM Workstation Name: [id number]
[2020-08-16 16:21] LABS: Hematocrit 39.1 % (35.5-45.6); Hemoglobin 12.1 gm/dl (11.8-15.2); Mean Corpuscular HGB Conc 31 % (32-34); Mean Corpuscular Volume 75 fl (84-94); Platelet Count 214 K/mm3 (140-440)
[2020-08-16 16:33] LABS: Alanine Aminotransferase 18 units/L (7-56); Albumin 3.8 g/dL (3.9-5); Blood Urea Nitrogen 69 mg/dL (9-20); Calcium 9.5 mg/dL (8.4-10.2); Hemolysis Index 36
[2020-08-16 16:49] LABS: BUN/Creatinine Ratio 9
[2020-08-16 17:12] LABS: Chol/HDL Ratio 2.84 %; HDL Cholesterol 33 mg/dL (40-59); LDL Cholesterol,Direct 46 mg/dL (50-130)
[2020-08-16 21:05] LABS: Band Neutrophils # (Manual) 0.1 K/mm3; Basophils % (Manual) 0 % (0.0-1.8); Burr Cells Few; Eosinophils % (Manual) 0 % (0.0-4.3); Tear Drop Cells Rare; Total Cells Counted 100
[2020-08-16 21:06] LABS: Ovalocytes Rare
[2020-08-16 21:07] LABS: Anisocytosis 2+; Hypochromasia 1+; Platelet Estimate Consistent w Auto; Target Cells Rare
== END 2020-08-16 18:50 ==
LOC: ED 12:17
DX: R07.89 Other chest pain (principal); R06.02 Shortness of breath; Z53.21 Procedure and treatment not carried out due to patient leaving prior to being seen by health care provider
CPT/HCPCS: 36415; 71046; 80053; 80061; 83880; 84484; 85007; 85025; 93005